=== PATIENT | female | born 1990 | race Caucasian/White ===

== ENCOUNTER 2017-12-02 10:27 | Emergency (ER) | payer BC, OTHER ==
[2017-12-02 10:34] VITALS: BP 151/94; BMI 29.0
--- NOTE | 2017-12-02 11:59 | DR.GENAD ---
HPI - PCP Primary Care Physician: NFD - Complaint/Symptoms Chief Complaint Doctors Comments: DIZZINESS, WEAKNESS AND VERTIGO THAT STARTED THIS AM SUDDENTLY. SHE IS ATAXIC WELL. DENIES EAR PAIN OR DISCOMFORT. PATIENT USE METH THIS AM. NO OTHER ILLICIT DRUG USE. PATIENT WILL SEE PCP IN AM FOR HER MEDICATIONSSHE USE FOR DEPRESSION. Chief Complaint:: PT C/O DIZZINESS AND WEAKNESS. PT STATES SHE HAS BEEN FEELING FINE UNTIL SHE SMOKED SOME METH THIS AM. PT STATES SHE IS ALSO SEEING SPOTS. - Nurses notes reviewed Nurses Notes Review: Yes - Source History Provided: Patient - Mode of Arrival Mode of Arrival: Ambulatory - Timing Onset of Chief Complaint: 12/02/17 Came on: Suddenly - Duration Duration: Constant Duration: Hours - Severity Severity: Moderate PMH - PMH Past Medical History: Yes Past Medical History: Anxiety Past Surgical History: Yes Surgical History: No History - Family History History of Family Medical Conditions: Yes Family Medical History: Cancer, Hypertension - Social History Does patient currently use any type of tobacco product: Yes Have you used tobacco products in the last 12 months: Yes Type of Tobacco Use: Cigarettes Does any household member use tobacco: Yes Alcohol Use: None Do you use any recreational Drugs:: Yes (meth, DILUADID) Lives With: Family Lives Where: Home - infectious screening In the last 2 months have you had wt loss of >10#?: NO Have you had fever, night sweats or hemotysis?: No Have you traveled outside the country in the last 6 months?: No Isolation: Standard ROS - Review of Systems Constitutional: No Symptoms Reported. negative: Chills, Fever, Weakness, Fatigue Eyes: No Symptoms Reported. negative: Eye Pain, Blurred Vision, Discharge, Photophobia ENTM: No Symptoms Reported. negative: Ear Pain, Nose Discharge, Nose Congestion , Throat Pain Respiratoy: No Symptoms Reported Cardiovascular: No Symptoms Reported Gastrointestinal/Abdominal: No Symptoms Reported Genitourinary: No Symptoms Reported Neurological: Dizziness, Other (ATAXIA). negative: Weakness Musculoskeletal: No Symptoms Reported Integumentary: No Symptoms Reported Hematologic/Lymphatic: No Symptoms Reported Endocrine: No Symptoms Reported All Other Systems: Reviewed and Negative PE - Vital Signs Vitals: Temperature 98.4 F Pulse Rate 127 Respiratory Rate 20 Blood Pressure [Left Arm] 111/68 Blood Pressure 151/94 O2 Sat by Pulse Oximetry 99 - General Limitations: No Limitations General Appearance: Alert - Head Head Exam: Normal Inspection - Eyes Eye exam: Normal Appearance - ENT ENT Exam: Normal External Ear Exam External Ear Exam: Normal External Inspection TM/Canal Exam: Bilateral Normal Nose Exam: Normal Nose Exam Mouth Exam: Normal Inspection Throat Exam: Normal Inspection - Neck Neck Exam: Trachea Midline - Respiratory Respiratory Exam: Normal Lung Sounds Bilat Respiratory Exam: Bilateral Clear to Auscultation - Cardiovascular Cardiovascular Exam: Regular Rate, Normal Rhythm, Normal Heart Sounds - Abdominal Exam Abdominal Exam: Normal Bowel Sounds, Soft. negative: Tenderness - Extremities Extremities Exam: Normal Inspection - Back Back Exam: Normal Inspection - Neurologic Neurological Exam: Alert, Oriented X3, CN II-XII Intact, Normal Gait, Reflexes Normal. negative: Motor Sensory Deficit - Psychiatric Psychiatric Exam: Normal Affect, Normal Mood - Skin Skin Exam: Normal Color MDM - Differential Diagnosis Differential Diagnosis: VERTIGO, DIZZINESS, SUBSTANCE ABUSE Course - Treatment Treatment: SEE ORDERS. - Education/Counseling Education/Counseling: Patient, Education Educated On: Diagnosis, Needs for Follow Up ROR - Labs Reviewed Laboratory Results Reviewed?: Yes Result Diagrams: 12/02/17 12:13 12/02/17 12:13 Laboratory: WBC 8.3 X10^3/uL (3.6-10.0) 12/02/17 12:13 RBC 4.59 X10^6/uL (3.5-5.4) 12/02/17 12:13 Hgb 14.9 g/dL (12.0-16.0) 12/02/17 12:13 Hct 42.5 % (36.0-47.0) 12/02/17 12:13 MCV 92.7 fL (80.0-100.0) 12/02/17 12:13 MCH 32.5 pg (27.0-34.0) 12/02/17 12:13 MCHC 35.1 g/dL (33.0-35.0) H 12/02/17 12:13 RDW 12.8 % (11.6-16.5) 12/02/17 12:13 Plt Count 249 X10^3/uL (150.0-450.0) 12/02/17 12:13 MPV 7.7 fL (7.4-11.0) 12/02/17 12:13 Neut % (Auto) 65.0 % (42.0-75.0) 12/02/17 12:13 Lymph % (Auto) 26.5 % (21.0-51.0) 12/02/17 12:13 Graham % (Auto) 7.4 % (0.0-13.0) 12/02/17 12:13 Eos % (Auto) 0.6 % (0.9-2.9) L 12/02/17 12:13 Baso % (Auto) 0.5 % (0.2-1.0) 12/02/17 12:13 Neut # (Auto) 5.4 x10^3/uL (2.2-4.8) H 12/02/17 12:13 Lymph # (Auto) 2.2 X10^3/uL (1.3-2.9) 12/02/17 12:13 Graham # (Auto) 0.6 x10^3/uL (0.3-0.8) 12/02/17 12:13 Eos # (Auto) 0.1 x10^3/uL (0.0-0.2) 12/02/17 12:13 Baso # (Auto) 0.0 X10^3/uL (0.0-0.1) 12/02/17 12:13 Absolute Nucleated RBC 0.0 /100WBC 12/02/17 12:13 Sodium 137 mmol/L (136-145) 12/02/17 12:13 Corrected Sodium TNP 12/02/17 12:13 Potassium 3.8 mmol/L (3.5-5.1) 12/02/17 12:13 Chloride 101 mmol/L (98-107) 12/02/17 12:13 Carbon Dioxide 27.6 mmol/L (21-32) 12/02/17 12:13 BUN 8 mg/dL (7-18) 12/02/17 12:13 Creatinine 0.74 mg/dL (0.55-1.02) 12/02/17 12:13 Est GFR (MDRD) Af Amer > 60 (>60) 12/02/17 12:13 Est GFR (MDRD) Non-Af > 60 (>60) 12/02/17 12:13 Glucose 83 mg/dL (65-99) 12/02/17 12:13 Calcium 8.6 mg/dL (8.5-10.1) 12/02/17 12:13 Corrected Calcium TNP 12/02/17 12:13 Total Bilirubin 1.30 mg/dL (0.2-1.0) H 12/02/17 12:13 AST 47 Units/L (15-37) H 12/02/17 12:13 ALT 97 Units/L (12-78) H 12/02/17 12:13 Alkaline Phosphatase 111 Units/L (46-116) 12/02/17 12:13 Total Protein 8.8 g/dL (6.4-8.2) H 12/02/17 12:13 Albumin 4.6 g/dL (3.4-5.0) 12/02/17 12:13 Globulin 4.2 g/dL (2.5-4.5) 12/02/17 12:13 Albumin/Globulin Ratio 1.1 Ratio (1.1-2.1) 12/02/17 12:13 HCG, Qual Negative <10 mIU/mL 12/02/17 12:13 Specimen Type Clean catch urine 12/02/17 12:14 Urine Color Yellow (YELLOW) 12/02/17 12:14 Urine Appearance Clear (CLEAR) 12/02/17 12:14 Urine pH 6.5 (5.0 - 8.0) 12/02/17 12:14 Ur Specific [place] 1.005 (1.000-1.030) 12/02/17 12:14 Urine Protein Negative (NEGATIVE) 12/02/17 12:14 Urine Glucose (UA) Negative (NEGATIVE) 12/02/17 12:14 Urine Ketones Negative (NEGATIVE) 12/02/17 12:14 Urine Occult Blood Negative (NEGATIVE) 12/02/17 12:14 Urine Nitrite Negative (NEGATIVE) 12/02/17 12:14 Urine Bilirubin Negative (NEGATIVE) 12/02/17 12:14 Urine Urobilinogen Normal (NORMAL) 12/02/17 12:14 Ur Leukocyte Esterase Negative (NEGATIVE) 12/02/17 12:14 Urine Opiates Screen Negative (NEG=<300) 12/02/17 12:14 Urine Methadone Screen Negative (NEG=<300) 12/02/17 12:14 Ur Barbiturates Screen Negative (NEG=<200) 12/02/17 12:14 Ur Phencyclidine Scrn Negative (NEG=<25) 12/02/17 12:14 Ur Amphetamines Screen Positive (NEG=<1000) A 12/02/17 12:14 U Benzodiazepines Scrn Negative (NEG=<200) 12/02/17 12:14 Urine Cocaine Screen Negative (NEG=<300) 12/02/17 12:14 U Marijuana (THC) Screen Negative (NEG=<50) 12/02/17 12:14 - XRAY XRAY Interpreted by: Radiologist XRAY Findings: REPORT DISCUSS WITH PATIENT. - Diagnosis Discharge Problem: Dizziness, Methamphetamine abuse - Discharge Plan Disposition: 01 HOME, SELF-CARE Condition: Stable - Follow ups/Referrals Follow ups/Referrals: NFD,None [Primary Care Provider] - 3 days - Instructions Instructions: Dizziness, Stimulant Use Disorder-Methamphetamines Additional Instructions: RETURN TO ED IF WORSE.
[2017-12-02 12:24] LABS: BASOPHILS % (AUTO) 0.5 % (0.2-1.0); EOSINOPHILS # (AUTO) 0.1 x10^3/uL (0.0-0.2); EOSINOPHILS % (AUTO) 0.6 % (0.9-2.9); HEMATOCRIT 42.5 % (36.0-47.0); HEMOGLOBIN 14.9 g/dL (12.0-16.0); LYMPHOCYTES # (AUTO) 2.2 X10^3/uL (1.3-2.9); LYMPHOCYTES % (AUTO) 26.5 % (21.0-51.0); MEAN CORPUSCULAR HEMOGLOBIN 32.5 pg (27.0-34.0); MEAN CORPUSCULAR HGB CONC 35.1 g/dL (33.0-35.0); MEAN CORPUSCULAR VOLUME 92.7 fL (80.0-100.0); MEAN PLATELET VOLUME 7.7 fL (7.4-11.0); MONOCYTES # (AUTO) 0.6 x10^3/uL (0.3-0.8); MONOCYTES % (AUTO) 7.4 % (0.0-13.0); NEUTROPHILS # (AUTO) 5.4 x10^3/uL (2.2-4.8); PLATELET COUNT 249 X10^3/uL (150.0-450.0); RED BLOOD COUNT 4.59 X10^6/uL (3.5-5.4); RED CELL DISTRIBUTION WIDTH 12.8 % (11.6-16.5); WHITE BLOOD COUNT 8.3 X10^3/uL (3.6-10.0)
[2017-12-02 12:25] LABS: BILIRUBIN,URINE NEGATIVE (NEGATIVE); BLOOD/HEMOGLOBIN,URINE NEGATIVE (NEGATIVE); GLUCOSE, URINE NEGATIVE (NEGATIVE); KETONES,URINE NEGATIVE (NEGATIVE); LEUKOCYTE ESTERASE ,URINE NEGATIVE (NEGATIVE); NITRITES,URINE NEGATIVE (NEGATIVE); PH,URINE 6.5 (5.0 - 8.0); PROTEIN,URINE NEGATIVE (NEGATIVE); UROBILINOGEN,URINE NORMAL (NORMAL)
[2017-12-02 12:28] LABS: APPEARANCE,URINE CLEAR (CLEAR); COLOR,URINE YELLOW (YELLOW)
[2017-12-02 12:32] LABS: ALANINE AMINOTRANSFERASE 97 Units/L (12-78); ALBUMIN 4.6 g/dL (3.4-5.0); ALKALINE PHOSPHATASE 111 Units/L (46-116); ASPARTATE AMINO TRANSFERASE 47 Units/L (15-37); BLOOD UREA NITROGEN 8 mg/dL (7-18); CALCIUM 8.6 mg/dL (8.5-10.1); CARBON DIOXIDE 27.6 mmol/L (21-32); CHLORIDE 101 mmol/L (98-107); CREATININE 0.74 mg/dL (0.55-1.02); SODIUM 137 mmol/L (136-145); TOTAL PROTEIN 8.8 g/dL (6.4-8.2); eGFR BLACK RACES > 60 (>60); eGFR NON BLACK RACES > 60 (>60)
[2017-12-02 13:22] LABS: SERUM PREGNANCY TEST, QUAL NEGATIVE <10 mIU/mL
--- NOTE | 2017-12-02 14:20 | CT ---
Examination: CT of the head. Clinical history: Dizziness and weakness. Technique: Multiple axial images were obtained from the skull base to the vertex. No intravenous cont rast was administered. Dose reduction techniques including automated exposure control (AEC) and adjus tment of mA and kV were utilized. Comparison: None available. Findings: There is no intra-, or extra-axial hemorrhage, acute infarct or mass lesion noted. The ventricles are normal in size and symmetric about the midline, with no midline shift or mass effe ct noted. The posterior fossa, brain stem and orbital regions are within normal limits. No bony or soft tissue abnormality is noted. Impression: 1. No acute infarct or hemorrhage. Reported By:
== END 2017-12-02 14:24 | disposition home or self-care (01) ==
LOC: ER 10:46
DX: F15.10 Other stimulant abuse, uncomplicated (principal); R42 Dizziness and giddiness
CPT/HCPCS: 36415; 70450; 80053; 80307; 81003; 84703; 85025; 99282; 99283; G0434

== ENCOUNTER 2025-02-25 18:22 | Inpatient (IN) ==
[2025-02-25 18:56] LABS: BLOOD/HEMOGLOBIN,URINE 4+ (NEGATIVE); LEUKOCYTE ESTERASE ,URINE 2+ (NEGATIVE); NITRITES,URINE POSITIVE (NEGATIVE)
[2025-02-25 18:57] VITALS: BMI 43.5
[2025-02-25 19:06] LABS: AMNISURE ROM TEST NO MEMBRANES RUPTURE (NO RUPTURE)
[2025-02-25 19:11] LABS: APPEARANCE,URINE CLEAR (CLEAR)
[2025-02-25 19:19] LABS: CALCIUM OXALATE CRYSTALS,UR NUMEROUS /HPF (NEGATIVE); SQUAMOUS EPITHELIAL CELL,UR FEW /HPF (NEGATIVE)
[2025-02-25] MEDS: LR 1,000 ML IV 1,000 ML IV ONE ×2 (20:00→21:00)
[2025-02-25] MEDS: AMPICILLIN VIAL 2 GRAM ONE (20:06)
[2025-02-25] MEDS: NS 100 ML IV 100 ML ONE (20:10)
[2025-02-25] MEDS ORDERED: NUBAIN INJ 20 MG AMP IVP PRN (20:12)
[2025-02-25] MEDS ORDERED: ZOFRAN INJ 4 MG VIAL IVP PRN (20:12)
[2025-02-25] MEDS ORDERED: REGLAN INJ 10 MG VIAL IVP PRN (20:12)
[2025-02-25 20:53] LABS: MEAN PLATELET VOLUME 10.1 fL (7.4-11.0); RED CELL DISTRIBUTION WIDTH 13.3 % (11.6-16.5)
[2025-02-25 20:56] LABS: CREATININE 0.55 mg/dL (0.55-1.02); eGFR NON BLACK RACES > 60 (>60)
--- NOTE | 2025-02-25 21:13 | DR.H&PGYN ---
H&P OBSTERICS/GYNECOLOGY Date Date of Exam: 02/25/25 Chief Complaint (1) Active labor: Chief Complaint: JUSTIN 03/09/25. Currently 38 w 2 d, presents 4-5 cm dilated with BBOW. Admitted for labor management. Allergies Allergies Allergy/AdvReac Type Severity Reaction Status Date / Time apple Allergy Verified 02/03/25 08:21 tramadol (From Ultram) Allergy Verified 02/03/25 08:21 History of Present Illness History of Present Illness: Has not been in the office for a few weeks. GBS is unknown. Was referred to [facility] in [place] due to size date discrepancy, and JUSTIN of 03/09/25 was chosen. History of treatment for syphilis, but we have been unsuccessful in obtaining those records from the health department. Review of Systems Constitutional: No Symptoms Reported Eyes: No Symptoms Reported ENT: No Symptoms Reported Respiratory: No Symptoms Reported Cardiovascular: No Symptoms Reported Gastrointestinal: No Symptoms Reported Genitourinary: Other (Labor contractions ) Musculoskeletal: No Symptoms Reported Skin: No Symptoms Reported Neurological: No Symptoms Reported Obsterical History : 2 Para: 1 Gynecologic History Date of last Mammogram: N/A Past Medical History Medical History: Schizophrenia Additional Medical History: Treated for syphilis Social History Does patient currently use any type of tobacco product: Yes Have you used tobacco products in the last 12 months: Yes Type of Tobacco Use: Cigarettes Does any household member use tobacco: No Alcohol Use: None Medications Active Medications Dextrose/Lactated Ringer's (D5 Lr 1,000 Ml) 1,000 mls @ 125 mls/hr IV Q8H SONI Oxytocin/Sodium Chloride (Oxytocin 20 Unit/1,000 Ml-Ns) 20 unit in 1,000 mls @ 6 mls/hr IV PER PROTOCOL PRN; Protocol PRN Reason: PER PROTOCOL Ampicillin Sodium 2 g/ Sodium (Chloride) 100 mls @ 200 mls/hr IV ONCE SONI Metoclopramide HCl (Metoclopramide Inj 10 Mg/2 Ml Vial) 10 mg IVP Q6H PRN PRN Reason: Indigestion/Nausea Nalbuphine HCl (Nalbuphine Hcl Inj 20 Mg/1 Ml Amp) 5 - 10 mg IVP Q2H PRN PRN Reason: MODERATE TO SEVERE PAIN Ondansetron HCl (Ondansetron Hcl 4 Mg/2 Ml Inj) 4 mg IVP Q8H PRN PRN Reason: NAUSEA/VOMITING Physical Exam Temperature: 97.5 F Blood Pressure: 102/86 Respiratory Rate: 20 Pulse Rate: 90 O2 Sat by Pulse Oximetry: 97 Oriented: Normal Respiratory: Normal Cardiovascular: Normal : Other (Cervix 6 cm / 90 / V / -2, intact bow) GI: Other (FHTs category I) Psychiatric: Normal Mood Description: Calm Affect: Anxious Plan Plan: Admit for management of labor. Review H&P Reviewed: Yes Patient was examined?: Yes
[2025-02-25] MEDS: FENTANYL VIAL INJ 100 mcg ONE (21:17)
[2025-02-25] MEDS: NAROPIN EPIDURAL 0.2% 100 ML ONE (21:23)
[2025-02-25] MEDS: NUBAIN INJ 10 MG AMP ONE (22:11)
[2025-02-25] MEDS: AMPICILLIN VIAL 2 GRAM 2 G in NS 100 ML IV + SPIKE MINIBAG* 100 ML IV SCH (22:13)
[2025-02-25] MEDS: D5 LR 1,000 ML 1,000 ML IV SCH (22:13)
[2025-02-25] MEDS: BETADINE SOLN ONE (23:35)
[2025-02-26] MEDS: NS 100 ML IV 100 ML ONE (00:10)
[2025-02-26] MEDS: AMPICILLIN VIAL 1 GRAM ONE (00:10)
[2025-02-26] MEDS: OXYTOCIN 20 UNIT/1,000 ML-NS 20 UNIT/1,000 ML PLAST..BAG IV PRN (00:13)
[2025-02-26] MEDS ORDERED: ADACEL or BOOSTRIX TDaP VACCINE IM ONE (00:58)
[2025-02-26] MEDS ORDERED: MOTRIN TAB 800 MG PO PRN (00:58)
[2025-02-26] MEDS: OXYTOCIN 20 UNIT/1,000 ML-NS 20 UNIT/1,000 ML PLAST..BAG IV SCH (01:30)
[2025-02-26] MEDS: HYPERRHO S/D (or RHOGAM) IM PRN (03:54)
[2025-02-26] MEDS: ADACEL or BOOSTRIX TDaP VACCINE IM ONE (05:58)
[2025-02-26] MEDS: CYTOTEC PO SCH (09:31)
[2025-02-26] MEDS: PRENATAL PLUS PO SCH (09:31)
[2025-02-26] MEDS ORDERED: PHARMACY CONSULT XX SCH (10:00)
[2025-02-26] MEDS: TRILEPTAL PO SCH (10:41)
[2025-02-26] MEDS: TRILEPTAL PO ONE (11:40)
[2025-02-26] MEDS ORDERED: ABILIFY PO PRN (13:28)
[2025-02-26] MEDS: MOTRIN TAB 800 MG PO PRN (14:43)
[2025-02-26] MEDS ORDERED: PATIENT'S HOME MEDICATION IM ONE (16:23)
[2025-02-26] MEDS: INVEGA SUSTENNA 156 MG IM ONE (17:01)
[2025-02-26] MEDS ORDERED: TRILEPTAL PO ONE (19:23)
[2025-02-26] MEDS ORDERED: ABILIFY PO SCH (21:00)
[2025-02-27 07:40] VITALS: RESP 18
[2025-02-27] MEDS: TRILEPTAL PO ONE (07:46)
[2025-02-27 12:08] VITALS: BP 122/78; PULSE 65; TEMP 97.9
[2025-02-27 12:09] VITALS: O2SAT 97
--- NOTE | 2025-02-28 08:43 | OB.OPNOTE ---
Op Note-MEDICAL OFFICE CLERK Date Date of Exam: 02/26/25 (1) Active labor: Pre-Op Diagnosis: G2, P1, category I tracing, insufficient care, polysubstance abuse Post-Op Diagnosis: status post vacuum assisted vaginal delivery Procedure: Vacuum assisted vaginal delivery Type of Anesthesia: Epidural Anesthetic Anesthesia Comment: adequate Surgeon: Rama Fischer MD EBL: 300 Type of Fluids Used:: Lactated Ringers Complications:: None Drains/Tubes Comment: [place] Specimen: Placenta Findings: Live infant with reassuring apgars. Mother and stable in LDR. Patient was found to be completely dilated, and pushed inadequately with coaching. vertex was pushed to I will let position, and vacuum was applied to the vertex. With maternal pushing efforts and pressure applied to the vacuum in a downward and outward direction, the scalp and head were delivered. The vacuum was removed. There was no nuchal cord. Body was delivered and placed on maternal abdomen. Delayed cord clamping was done at 1 minute. Cord blood samples were obtained. Placenta was delivered spontaneously. Hemostasis was found to be adequate and verified with sponge forceps. There were no vaginal or perineal lacerations. Hemostasis was verified at the perineum. Fundus was firm with massage. Mother and infant are stable on recovery. Patient's mother was at the bedside.
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
== END 2025-02-27 16:30 | disposition home or self-care (01) | DRG 806 ==
LOC: SUPCPDRO → ER 18:22 → LD 19:53 → MED/SURG 02-26 01:32
PROVIDERS: ADMIT Obstetrics & Gynecology; ATTEND Obstetrics & Gynecology